=== PATIENT | male | born 1990 | race African-American/Black ===

== ENCOUNTER 2016-10-22 11:43 | Emergency (ER) ==
[2016-10-22 12:16] VITALS: BP 132/076
[2016-10-22] MEDS ORDERED: NS 1,000 ML IV ONE ×3 (12:30→15:51)
[2016-10-22] MEDS ORDERED: ZOFRAN IV ONE (12:31)
[2016-10-22 12:58] LABS: MANUAL DIFF NEEDED? NO
[2016-10-22 13:02] LABS: BASO% 0.2 % (0.0-0.8); EOS# 0.02 X1000 (0.0-0.7); EOS% 0.2 % (0.0-10.0); HEMATOCRIT 50.9 % (42.0-52.0); HEMOGLOBIN 18.3 g/dL (14.0-18.0); IMM GRAN# 0.04 X1000 (0.0-0.04); IMM GRAN% 0.3 % (0.0-0.5); LYMPH# 2.33 X1000 (1.2-3.4); LYMPH% 18.8 % (20.5-51.1); MCV 77.9 FL (81-99); MONO# 1.32 X1000 (0.11-0.59); MONO% 10.6 % (1.7-9.3); MPV 13.4 FL (7.4-10.4); NEUT% 69.9 % (42.2-75.2); PLT 147 X1000 (130-400); RBC 6.53 XMIL (4.7-6.1)
--- NOTE | 2016-10-22 13:28 | PROVIDER DOCUMENTATION ---
HPI-General Adult - General Chief Complaint: Generalized Pain Stated Complaint: WORK RELATED INJURY Time Seen by Provider: 10/22/16 12:30 Source: patient Allergies/Adverse Reactions: Patient Allergies Allergy/AdvReac Type Severity Reaction Status Date / Time No Known Allergies Allergy Verified 10/22/16 12:16 Home Medications: Home Medication List Medication Instructions Recorded Confirmed Last Taken Type No Home Medications 10/22/16 10/22/16 Unknown History - History of Present Illness -Gen Adult Nature of Presenting Problems: Patient is a 26 yo M that presents to the ER with generalized cramping to body. 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 patient similar symptoms in the past. Patient denies shortness of breath or chest pain. Has has nausea and two episodes of vomiting Location of Pain/Injury: reports: generalized Pain Radiation: reports: no radiation Quality of Pain: reports: aching, cramping Severity: reports: moderate Onset/Duration: reports: gradual, 24 hours ago Timing: reports: still present, constant Context/Activities at Onset: reports: other (heat exposure) Modifying Factors: improves with: nothing Associated Symptoms: reports: malaise, muscle aches, nausea, vomiting. denies: diarrhea, dizziness, fever/chills, shortness of breath Similar Symptoms Previously?: Yes Recently seen or treated by another doctor?: No Review of Systems - Adult - REVIEW OF SYSTEMS - ADULT Constitutional: denies: chills, fever Eyes: denies: decreased vision, blurred vision, double vision Ears, Nose, Mouth & Throat: denies: ear pain, sinus problem, throat pain, throat swelling Cardiovascular: denies: chest pain, palpitations, syncope Respiratory: denies: shortness of breath, wheezing Gastrointestinal: reports: nausea, vomiting. denies: abdominal pain, diarrhea Genitourinary: reports: no symptoms reported Musculoskeletal: reports: muscle aches, muscle weakness Integumentary: reports: no symptoms reported Neurological: reports: no symptoms reported Psychiatric: reports: no symptoms reported Endocrine: reports: no symptoms reported Hematologic/Lymphatic: reports: no symptoms reported Allergic/Immunologic: reports: no symptoms reported All Other Systems: Reviewed and Negative Past History - Adult - PAST MEDICAL HISTORY-ADULT Review of Records: reports: Old Records Reviewed, Nursing Assessment Review, Medications Reviewed Cardiovascular: reports: HTN - PRIOR SURGERIES/PROCEDURES Surgical/Procedure History: reports: none - IMMUNIZATION STATUS Childhood Immunizations: See Nurse Assessment Flu Vaccine: See Nurse Assessment - FAMILY HISTORY Family History: reviewed, not pertinent - SOCIAL HISTORY Smoking: quit greater than 1 year, cigarettes Alcohol Use Frequency: occasionally Living Situation: family Physical Exam-General - PHYSICAL EXAM-ADULT Initial Vital Signs Reviewed: Yes - CONSTITUTIONAL General Appearance: alert, no apparent distress - EYES Eyes: PERRL/EOMI, pink conjunctivae, fundi clear, no AV nicking - HEAD, EARS, NOSE, MOUTH & THROAT HENMT: normocephalic/atraumatic, moist mucous membranes, normal ENT inspection - NECK Neck: non-tender, full range of motion, normal inspection - RESPIRATORY Respiratory: lungs clear, normal breath sounds, no respiratory distress, no accessory muscle use - CARDIOVASCULAR Cardiovascular: regular rate, rhythm, no edema, no murmur - GASTROINTESTINAL (ABDOMEN) Abdominal Exam: normal bowel sounds, non tender, soft, no organomegaly, no pulsatile mass - MUSCULOSKELETAL Back Exam: no CVA tenderness, no vertebral tenderness Extremity: normal range of motion, normal inspection, no pedal edema, no calf tenderness, normal capillary refill - SKIN Integumentary: normal color, warm/dry - NEUROLOGIC Neurologic: grossly normal, no motor/sensory deficits - PSYCHIATRIC Psych/Mental Status: normal mood/affect, normal thought content, normal thought process, oriented x 3 Progress - PLAN OF CARE/RESULTS Progress/Plan/Lab Results: Vital Signs Temp Pulse Resp BP Pulse Ox 10/22/16 12:12 98.8 F 94 H 20 132/076 96 No Known Allergies Allergy (Verified 10/22/16 12:16) No Home Medications 10/22/16 Laboratory 10/22/16 10/22/16 10/22/16 17:10 17:10 15:00 WBC RBC Hgb Hct MCV MCH MCHC RDW Std Deviation Plt Count MPV Immature Gran % (Auto) Neut % (Auto) Lymph % (Auto) Archer % (Auto) Eos % (Auto) Baso % (Auto) Immature Gran # (Auto) Neut # (Auto) Lymph # (Auto) Archer # (Auto) Eos # (Auto) Baso # (Auto) Sodium 133 L Potassium 3.5 Chloride 96 L Carbon Dioxide 20 L Anion Gap 16 BUN 29 H Creatinine 1.8 H Estimated GFR/1.73 m2 45 BUN/Creatinine Ratio 16 Glucose 87 Calculated Osmolality 272 Calcium 8.6 L D Magnesium Total Bilirubin 2.10 H AST 34 ALT 20 Alkaline Phosphatase 80 Creatine Kinase 1718 H Creatine Kinase Index CK-MB (CK-2) Troponin T < 0.010 Total Protein 7.3 Albumin 4.4 Globulin 3.0 Albumin/Globulin Ratio 2.0 Urine Source Urine Color Urine Clarity Urine pH Ur Specific [place] Urine Protein Urine Ketones Urine Blood Urine Nitrite Urine Bilirubin Urine Urobilinogen Urine Microscopic RBC Urine WBC Urine Microscopic WBC Ur Epithelial Cells Urine Glucose Urine Opiates Screen NONE DETECTED Ur Oxycodone Screen NONE DETECTED Urine Methadone Screen NONE DETECTED Ur Barbituates Screen NONE DETECTED Ur Tricyclics Screen NONE DETECTED Ur Phencyclidine Scrn NONE DETECTED Ur Amphetamines Screen NONE DETECTED U Methamphetamines Scrn NONE DETECTED Urine MDMA Screen NONE DETECTED U Benzodiazepines Scrn NONE DETECTED Urine Cocaine Screen NONE DETECTED U Cannabinoids Screen NONE DETECTED 10/22/16 10/22/16 10/22/16 15:00 13:20 13:20 WBC RBC Hgb Hct MCV MCH MCHC RDW Std Deviation Plt Count MPV Immature Gran % (Auto) Neut % (Auto) Lymph % (Auto) Archer % (Auto) Eos % (Auto) Baso % (Auto) Immature Gran # (Auto) Neut # (Auto) Lymph # (Auto) Archer # (Auto) Eos # (Auto) Baso # (Auto) Sodium Cancelled Potassium Cancelled Chloride Cancelled Carbon Dioxide Cancelled Anion Gap Cancelled BUN Cancelled Creatinine Cancelled Estimated GFR/1.73 m2 Cancelled BUN/Creatinine Ratio Cancelled Glucose Cancelled Calculated Osmolality Cancelled Calcium Cancelled Magnesium Total Bilirubin Cancelled AST Cancelled ALT Cancelled Alkaline Phosphatase Cancelled Creatine Kinase Cancelled Creatine Kinase Index Cancelled CK-MB (CK-2) Cancelled Troponin T Cancelled Total Protein Cancelled Albumin Cancelled Globulin Cancelled Albumin/Globulin Ratio Cancelled Urine Source CLEAN CATCH Urine Color YELLOW Urine Clarity CLEAR Urine pH 6.5 Ur Specific [place] 1.005 Urine Protein NEGATIVE Urine Ketones 1+(Small) A Urine Blood NEGATIVE Urine Nitrite NEGATIVE Urine Bilirubin NEGATIVE Urine Urobilinogen NORMAL Urine Microscopic RBC <10 Urine WBC NEGATIVE Urine Microscopic WBC <10 Ur Epithelial Cells <10 Urine Glucose NEGATIVE Urine Opiates Screen Ur Oxycodone Screen Urine Methadone Screen Ur Barbituates Screen Ur Tricyclics Screen Ur Phencyclidine Scrn Ur Amphetamines Screen U Methamphetamines Scrn Urine MDMA Screen U Benzodiazepines Scrn Urine Cocaine Screen U Cannabinoids Screen 10/22/16 10/22/16 10/22/16 12:54 12:54 12:54 WBC 12.42 H RBC 6.53 H Hgb 18.3 H Hct 50.9 MCV 77.9 L MCH 28.0 MCHC 36.0 RDW Std Deviation 13.0 Plt Count 147 MPV 13.4 H Immature Gran % (Auto) 0.3 Neut % (Auto) 69.9 Lymph % (Auto) 18.8 L Archer % (Auto) 10.6 H Eos % (Auto) 0.2 Baso % (Auto) 0.2 Immature Gran # (Auto) 0.04 Neut # (Auto) 8.69 H Lymph # (Auto) 2.33 Archer # (Auto) 1.32 H Eos # (Auto) 0.02 Baso # (Auto) 0.02 Sodium 132 L Potassium 3.5 Chloride 87 L Carbon Dioxide 23 L Anion Gap 22 BUN 32 H Creatinine 2.5 H Estimated GFR/1.73 m2 31 BUN/Creatinine Ratio 13 Glucose 90 Calculated Osmolality 271 Calcium 10.8 H Magnesium 2.4 Total Bilirubin 2.80 H AST 41 H ALT 25 Alkaline Phosphatase 105 Creatine Kinase 2018 H Creatine Kinase Index 0.6 CK-MB (CK-2) 11.42 H Troponin T < 0.010 Total Protein 9.6 H Albumin 5.7 H Globulin 4.0 Albumin/Globulin Ratio 1.0 Urine Source Urine Color Urine Clarity Urine pH Ur Specific [place] Urine Protein Urine Ketones Urine Blood Urine Nitrite Urine Bilirubin Urine Urobilinogen Urine Microscopic RBC Urine WBC Urine Microscopic WBC Ur Epithelial Cells Urine Glucose Urine Opiates Screen Ur Oxycodone Screen Urine Methadone Screen Ur Barbituates Screen Ur Tricyclics Screen Ur Phencyclidine Scrn Ur Amphetamines Screen U Methamphetamines Scrn Urine MDMA Screen U Benzodiazepines Scrn Urine Cocaine Screen U Cannabinoids Screen Orders Category Date Time Status Saline Loc NOW Care 10/22/16 12:31 Active CBC WITH DIFF [HEME] Stat Lab 10/22/16 12:54 Completed CK PROFILE [SP CHEM] Routine Lab 10/22/16 17:10 Results CK PROFILE [SP CHEM] Stat Lab 10/22/16 12:54 Completed COMPREHENSIVE METABOLIC PANEL [CHEM] Routine Lab 10/22/16 17:10 Results COMPREHENSIVE METABOLIC PANEL [CHEM] Stat Lab 10/22/16 12:54 Completed MAGNESIUM [CHEM] Stat Lab 10/22/16 12:54 Completed TROPONIN T Routine Lab 10/22/16 17:10 Completed TROPONIN T Stat Lab 10/22/16 12:[address] W/POSS RFLX CULT [URINALYSIS] Stat Lab 10/22/16 15:00 Completed URINE DRUG SCREEN PL Stat Lab 10/22/16 15:00 Completed 0.9% Sodium Chloride Inj [Ns] 1,000 ml Med 10/22/16 12:30 Discontinued IV 999 mls/hr 0.9% Sodium Chloride Inj [Ns] 1,000 ml Med 10/22/16 13:46 Discontinued IV 999 mls/hr 0.9% Sodium Chloride Inj [Ns] 1,000 ml Med 10/22/16 15:51 Discontinued IV 999 mls/hr Ondansetron [Zofran] Med 10/22/16 12:31 Discontinued 4 mg IV NOW ONE pt will be d/c home f/u ohg , pt was clinically stable, - REASSESSMENT Reassessment #1 Time Reassessed: 15:51 Status: improving Reassessment Comment: still feeling better, more fluids ordered, repeat lab, doesn't want admit Departure - Departure Time of Disposition Order: 17:51 DIAGNOSIS: Heat exhaustion Qualifiers: Encounter type: initial encounter Qualified Code(s): T67.5XXA - Heat exhaustion , unspecified, initial encounter Rhabdomyolysis Qualifiers: Rhabdomyolysis type: non-traumatic Qualified Code(s): M62.82 - Rhabdomyolysis Disposition: HOME 01 Certified Medical Emergency: Emergent Condition: Stable Additional Instructions: ED Follow Up Instructions: You have been treated by a care provider in the Emergency Department. These instructions are being provided to you so you can have an understanding of how to care for yourself upon discharge. Upon discharge from the Emergency Department, you are responsible for making arrangements for follow-up care by a physician of your choice. Take all prescribed medications as directed. Return to the Emergency Department immediately for any new or worsening symptoms. You may call the Physician Referral phone number at [phone] to obtain a list of Physicians who are taking new patients. Instructions: Heat-Related Illness, Muscle Cramps and Spasms, [id number], Rhabdomyolysis Attestation - Scribe Verification/Attestation Scribe:: Nic Richardson Acting as Scribe for:: Asad Motta Scribe documention review:: This chart was documented by a scribe and accurately reflects the service the provider performed and the decisions made by the provider. Physician Attestation - Physician Attestation I, the provider, attest to the following statement:: Asad Motta Physician documentation Attestation:: This documentation recorded by the scribe accurately reflects the service I personally performed and the decisions made by me.
[2016-10-22 13:34] LABS: ALBUMIN 5.7 g/dL (3.5-5.0); CALCIUM 10.8 mg/dL (8.8-10.2); MAGNESIUM 2.4 mg/dL (1.5-2.7); POTASSIUM 3.5 mmol/L (3.5-5.1); TOTAL BILIRUBIN 2.8 mg/dL (0.20-1.00); TOTAL PROTEIN 9.6 g/dL (6.3-8.3)
[2016-10-22 14:12] LABS: CK INDEX 0.6 (0.0-2.5); CK-MB 11.42 ng/mL (0.0-5.0)
[2016-10-22 15:03] LABS: URINE CULTURE PL NEEDED? NO; URINE SOURCE CLEAN CATCH
[2016-10-22 15:18] LABS: UR AMPHETAMINES QUAL NONE DETECTED (NONE DETECT); UR BARBITUATES QUAL NONE DETECTED (NONE DETECT); UR BENZODIAZEPIN QUAL NONE DETECTED (NONE DETECT); UR CANNABINOIDS QUAL NONE DETECTED (NONE DETECT); UR COCAINE QUAL NONE DETECTED (NONE DETECT); UR MDMA QUAL NONE DETECTED (NONE DETECT); UR METHADONE QUAL NONE DETECTED (NONE DETECT); UR METHAMPHETAMINE QUAL NONE DETECTED (NONE DETECT); UR OPIATES QUAL NONE DETECTED (NONE DETECT); UR OXYCODONE QUAL NONE DETECTED (NONE DETECT); UR PCP QUAL NONE DETECTED (NONE DETECT); UR TCA QUAL NONE DETECTED (NONE DETECT)
[2016-10-22 15:29] LABS: BILIRUBIN URINE NEGATIVE (NEGATIVE); BLOOD URINE NEGATIVE (NEGATIVE); CLARITY CLEAR (CLEAR); COLOR YELLOW; GLUCOSE URINE NEGATIVE (NEGATIVE); LEUKOCYTES URINE NEGATIVE (NEGATIVE); NITRITE URINE NEGATIVE (NEGATIVE); PH URINE 6.5; PROTEIN URINE NEGATIVE (NEGATIVE); SP GRAVITY URINE 1.005; UROBILINOGEN URINE NORMAL
[2016-10-22 15:52] LABS: URINE EPITHELIAL CELLS <10 /HPF (<10); URINE RBC <10 /HPF (<10); URINE WBC <10 /HPF (<10)
[2016-10-22 17:48] LABS: ALBUMIN 4.4 g/dL (3.5-5.0); CALCIUM 8.6 mg/dL (8.8-10.2); POTASSIUM 3.5 mmol/L (3.5-5.1); TOTAL BILIRUBIN 2.1 mg/dL (0.20-1.00); TOTAL PROTEIN 7.3 g/dL (6.3-8.3)
[2016-10-22 18:03] LABS: CK INDEX 0.6 (0.0-2.5); CK-MB 10.03 ng/mL (0.0-5.0)
== END 2016-10-22 18:17 | disposition home or self-care (01) ==
LOC: P.ED 11:43
DX: T67.5XXA Heat exhaustion, unspecified, initial encounter (principal); M62.82 Rhabdomyolysis; R25.2 Cramp and spasm; R53.81 Other malaise; M79.1 Myalgia; R11.2 Nausea with vomiting, unspecified; M62.81 Muscle weakness (generalized); I10 Essential (primary) hypertension; Z87.891 Personal history of nicotine dependence; X58.XXXA Exposure to other specified factors, initial encounter
CPT/HCPCS: 36415; 80053; 80305; 81001; 82550; 82553; 83735; 84484; 85025; 96361; 96374; J2405; J7030